=== PATIENT | male | born 1950 | race Caucasian/White ===

== ENCOUNTER 2018-05-22 20:45 | Inpatient (IN) ==
[2018-05-22] MEDS ORDERED: SODIUM CHLORIDE 0.9% 1,000 ML IV STA (21:33)
[2018-05-22] MEDS ORDERED: VANCOMYCIN INJ 1,000 MG in SODIUM CHLORIDE 0.9% 250 ML IV STA ×2 (21:33→22:28)
[2018-05-22] MEDS ORDERED: CEFEPIME 2,000 MG in SODIUM CHLORIDE 0.9% 100 ML IV STA (21:33)
[2018-05-22 21:49] LABS: Basophils % 0.4 % (0.0-0.8); Eosinophils # 0.2 10*3/uL (0.0-0.87); Eosinophils % 3.2 % (0.00-10.9); Hematocrit 39.4 VOL% (42.0-52.0); Immature Granulocytes % 0.9 %; Immature Granulocytes Absolute 0.05 #; Lymphocytes # 1.3 10*3/uL (1.4-4.0); Lymphocytes % 24.1 % (21.2-54.2); Mean Corpuscular Hemoglobin 29 PG (27-34); Mean Corpuscular Volume 87.4 FL (87-102); Mean Platelet Volume 8.9 FL (9.6-12.0); Monocytes # 0.7 10*3/uL (0.11-0.8); Monocytes % 12.2 % (1.7-12.7); Neutrophils # 3.1 10*3/uL (1.4-7.4); Neutrophils % 59.2 % (38.7-73.9); Platelet Count 238 T/CUMM (130-400); Red Blood Count 4.51 MC/CUMM (3.8-5.5); Red Cell Distribution Width 13.1 % (9.3-17.3); White Blood Count 5.3 T/CUMM (4-12)
[2018-05-22 22:15] LABS: Bilirubin,Total 0.4 MG/DL (0.2-1.0); Calcium 6.9 MG/DL (8.5-10.1); Lactic Acid 1.3 MMOL/L (0.4-2.0); Osmolality,Calculated 278.5 MOS/KG (273-304); Potassium 3.9 MMOL/L (3.5-5.1); Total Protein 6.8 G/DL (6.4-8.3)
[2018-05-22 22:22] LABS: Eosinophils 2 % (0-10); Lymphocytes 26 % (20-55); Segmented Neutrophils 63 % (50-85); Total Cells Counted 100
[2018-05-22 22:23] LABS: Platelet Estimate Normal; Polychromasia Few
[2018-05-22 23:42] LABS: Apearance,Urine CLEAR (Clear); Bilirubin,Urine Negative (Negative); Blood, Urine Negative (Negative); Glucose,Urine (UA) Negative (Negative); Ketones,Urine Negative (Negative); Nitrite,Urine Negative (Negative); Protein,Urine Negative; RBC,Urine <1 /HPF (0-4); Urine Color Straw (Yellow); Urine Specific Gravity 1.006 (1.001-1.035); Urine Urobilinogen < 2.0 EU/DL (0.2-1.0); WBC,Urine 1 /HPF (0-6)
[2018-05-23] MEDS ORDERED: ONDANSETRON 4 MG/2 ML VIAL IV PRN (00:22)
[2018-05-23] MEDS ORDERED: ACETAMINOPHEN 325 MG TABLET PO PRN (00:22)
[2018-05-23] MEDS: CEFEPIME 1,000 MG in SYRINGE 1 EACH IV SCH ×2 (06:02→15:38)
[2018-05-23 06:54] LABS: Basophils % 0.2 % (0.0-0.8); Eosinophils % 0.4 % (0.00-10.9); Hematocrit 35.8 VOL% (42.0-52.0); Hemoglobin 11.5 GM/DL (14.0-18.0); Immature Granulocytes Absolute 0.05 #; Lymphocytes # 0.6 10*3/uL (1.4-4.0); Lymphocytes % 11.1 % (21.2-54.2); Mean Corpuscular HGB Conc 32.1 GM/DL (32-36); Mean Corpuscular Hemoglobin 28 PG (27-34); Mean Corpuscular Volume 87.5 FL (87-102); Mean Platelet Volume 8.6 FL (9.6-12.0); Monocytes # 0.4 10*3/uL (0.11-0.8); Monocytes % 6.9 % (1.7-12.7); Neutrophils # 4.2 10*3/uL (1.4-7.4); Neutrophils % 80.4 % (38.7-73.9); Platelet Count 220 T/CUMM (130-400); Red Blood Count 4.09 MC/CUMM (3.8-5.5); Red Cell Distribution Width 13.1 % (9.3-17.3); White Blood Count 5.2 T/CUMM (4-12)
[2018-05-23 07:18] LABS: Eosinophils 1 % (0-10); Lymphocytes 12 % (20-55); Platelet Estimate Normal; Segmented Neutrophils 80 % (50-85); Total Cells Counted 100
[2018-05-23 07:21] LABS: Albumin 2.7 G/DL (3.4-5.0); Bilirubin,Total 0.5 MG/DL (0.2-1.0); Calcium 6.7 MG/DL (8.5-10.1); Osmolality,Calculated 277.7 MOS/KG (273-304); Potassium 4.8 MMOL/L (3.5-5.1); Total Protein 6.4 G/DL (6.4-8.3)
[2018-05-23] MEDS ORDERED: traMADol 50 MG TABLET PO PRN (07:54)
[2018-05-23] MEDS ORDERED: PROCHLORPERAZINE 10 MG TABLET PO PRN (07:54)
[2018-05-23] MEDS: DOCUSATE SODIUM 100 MG CAPSULE PO SCH (09:40)
[2018-05-23] MEDS: FAMOTIDINE 20 MG TABLET PO SCH (09:41)
[2018-05-23] MEDS: PANTOPRAZOLE 40 MG TABLET PO SCH (09:41)
[2018-05-23] MEDS: DEXAMETHASONE 4 MG TABLET PO SCH (09:41)
[2018-05-23] MEDS ORDERED: MAGNESIUM SULF RIDER 2 GM in PREMIX 1 EACH IV PRN (13:35)
[2018-05-23] MEDS ORDERED: MAGNESIUM SULF RIDER 4 GM in PREMIX 1 EACH IV PRN (13:35)
[2018-05-23] MEDS: LIDOCAINE 5% PATCH TRANSDERM SCH (15:41)
[2018-05-23] MEDS ORDERED: GABAPENTIN 300 MG CAPSULE PO SCH (21:00)
[2018-05-23] MEDS ORDERED: MIRTAZAPINE 15 MG TABLET PO SCH (21:00)
[2018-05-24] MEDS: CEFEPIME 1,000 MG in SYRINGE 1 EACH IV SCH ×2 (00:38→06:42)
[2018-05-24 05:52] LABS: Basophils % 0.1 % (0.0-0.8); Eosinophils # 0.1 10*3/uL (0.0-0.87); Eosinophils % 0.8 % (0.00-10.9); Hematocrit 33.1 VOL% (42.0-52.0); Hemoglobin 10.8 GM/DL (14.0-18.0); Immature Granulocytes % 0.6 %; Immature Granulocytes Absolute 0.04 #; Lymphocytes % 13.5 % (21.2-54.2); Mean Corpuscular HGB Conc 32.6 GM/DL (32-36); Mean Corpuscular Hemoglobin 28 PG (27-34); Mean Corpuscular Volume 86.6 FL (87-102); Mean Platelet Volume 8.9 FL (9.6-12.0); Monocytes # 0.8 10*3/uL (0.11-0.8); Monocytes % 10.5 % (1.7-12.7); Neutrophils # 5.3 10*3/uL (1.4-7.4); Neutrophils % 74.5 % (38.7-73.9); Platelet Count 208 T/CUMM (130-400); Red Blood Count 3.82 MC/CUMM (3.8-5.5); Red Cell Distribution Width 13.2 % (9.3-17.3); White Blood Count 7.1 T/CUMM (4-12)
[2018-05-24 06:08] LABS: Calcium 7.2 MG/DL (8.5-10.1); Potassium 4.3 MMOL/L (3.5-5.1)
[2018-05-24 06:22] LABS: Lymphocytes 16 % (20-55); Platelet Estimate Normal; Polychromasia Few; Segmented Neutrophils 74 % (50-85); Total Cells Counted 100
[2018-05-24 07:46] VITALS: BP 157/78
[2018-05-24] MEDS: DEXAMETHASONE 4 MG TABLET PO SCH (10:10)
[2018-05-24] MEDS: DOCUSATE SODIUM 100 MG CAPSULE PO SCH (10:10)
[2018-05-24] MEDS: FAMOTIDINE 20 MG TABLET PO SCH (10:10)
[2018-05-24] MEDS: LIDOCAINE 5% PATCH TRANSDERM SCH (10:11)
[2018-05-24] MEDS: PANTOPRAZOLE 40 MG TABLET PO SCH (10:12)
== END 2018-05-24 10:27 | disposition home or self-care (01) | DRG 864 ==
LOC: N.ED 20:45 → N.EDINP 05-23 00:22 → N.4E 05-23 00:45
PROVIDERS: ADMIT Internal Medicine; ATTEND Internal Medicine

== ENCOUNTER 2019-01-11 22:24 | Inpatient (IN) ==
[2019-01-12 04:05] LABS: Basophils % 0.5 % (0.0-0.8); Eosinophils % 0.4 % (0.00-10.9); Hematocrit 37.7 VOL% (42.0-52.0); Hemoglobin 12.2 GM/DL (14.0-18.0); Immature Granulocytes % 1.4 %; Immature Granulocytes Absolute 0.11 #; Lymphocytes # 0.4 10*3/uL (1.4-4.0); Lymphocytes % 4.7 % (21.2-54.2); Mean Corpuscular HGB Conc 32.4 GM/DL (32-36); Mean Corpuscular Volume 97.7 FL (87-102); Monocytes % 16.3 % (1.7-12.7); NRBC # 0.02 10*3/uL; Neutrophils % 76.7 % (38.7-73.9); Platelet Count 155 T/CUMM (130-400); Red Blood Count 3.86 MC/CUMM (3.8-5.5); Red Cell Distribution Width 14.6 % (9.3-17.3); White Blood Count 7.6 T/CUMM (4-12)
[2019-01-12 04:30] LABS: Band Neutrophils 1 % (0-10); Lymphocytes 6 % (20-55); Platelet Estimate Adequate; Polychromasia Few; Segmented Neutrophils 77 % (50-85); Total Cells Counted 100
[2019-01-12 04:43] LABS: Albumin 3.4 G/DL (3.4-5.0); Bilirubin,Total 1.4 MG/DL (0.2-1.0); Calcium 8.4 MG/DL (8.5-10.1); Osmolality,Calculated 282.4 MOS/KG (273-304); Total Protein 8.3 G/DL (6.4-8.3)
[2019-01-12] MEDS ORDERED: VANCOMYCIN INJ 1,000 MG in SODIUM CHLORIDE 0.9% 250 ML IV STA (05:00)
[2019-01-12] MEDS ORDERED: NICOTINE 21 MG/24 HR PATCH TRANSDERM PRN (05:37)
[2019-01-12] MEDS ORDERED: traZODone 50 MG TABLET PO PRN (05:37)
[2019-01-12] MEDS ORDERED: ACETAMINOPHEN 325 MG TABLET PO PRN (05:37)
[2019-01-12] MEDS ORDERED: ONDANSETRON 4 MG/2 ML VIAL IV PRN (05:37)
[2019-01-12] MEDS ORDERED: DOCUSATE SODIUM 100 MG CAPSULE PO PRN (05:37)
[2019-01-12] MEDS ORDERED: ALBUTEROL 2.5 MG/3 ML NEB RESP TX PRN (05:44)
[2019-01-12] MEDS: ENOXAPARIN 40 MG/0.4 ML SYRINGE SUBCUT SCH (10:36)
[2019-01-12] MEDS: PANTOPRAZOLE 40 MG TABLET PO SCH (10:36)
[2019-01-12] MEDS: SODIUM CHLORIDE 0.9% 1,000 ML IV SCH ×2 (10:39→22:39)
[2019-01-12] MEDS: VANCOMYCIN INJ 1,000 MG in SODIUM CHLORIDE 0.9% 250 ML IV SCH (23:33)
[2019-01-13 05:08] LABS: Basophils % 0.3 % (0.0-0.8); Eosinophils % 0.3 % (0.00-10.9); Hematocrit 29.1 VOL% (42.0-52.0); Hemoglobin 9.1 GM/DL (14.0-18.0); Immature Granulocytes % 1.8 %; Immature Granulocytes Absolute 0.21 #; Lymphocytes # 0.4 10*3/uL (1.4-4.0); Lymphocytes % 3.5 % (21.2-54.2); Mean Corpuscular HGB Conc 31.3 GM/DL (32-36); Mean Corpuscular Volume 99.3 FL (87-102); Mean Platelet Volume 9.7 FL (9.6-12.0); Monocytes % 10.3 % (1.7-12.7); Neutrophils % 83.8 % (38.7-73.9); Platelet Count 139 T/CUMM (130-400); Red Blood Count 2.93 MC/CUMM (3.8-5.5); Red Cell Distribution Width 14.7 % (9.3-17.3); White Blood Count 11.9 T/CUMM (4-12)
[2019-01-13 05:20] LABS: Calcium 7.4 MG/DL (8.5-10.1); Osmolality,Calculated 281.3 MOS/KG (273-304)
[2019-01-13 06:06] LABS: Band Neutrophils 3 % (0-10); Lymphocytes 9 % (20-55); Segmented Neutrophils 81 % (50-85); Total Cells Counted 100
[2019-01-13 06:07] LABS: Atypical Lymphocytes Few; Hypersegmented Neutrophil SLIGHT
[2019-01-13 06:08] LABS: Microcytosis 1+; Platelet Estimate Adequate
[2019-01-13] MEDS ORDERED: ALBUTEROL SULFATE BOTH NARES PRN (09:14)
[2019-01-13] MEDS ORDERED: NAPROXEN 250 MG TABLET PO PRN (09:27)
[2019-01-13] MEDS ORDERED: CALCIUM CARBONATE CHEW 500 MG TABLET PO PRN (09:27)
[2019-01-13] MEDS: ENOXAPARIN 40 MG/0.4 ML SYRINGE SUBCUT SCH (09:39)
[2019-01-13] MEDS: PANTOPRAZOLE 40 MG TABLET PO SCH (09:39)
[2019-01-13] MEDS: FOLIC ACID 0.4 MG TABLET PO SCH (09:39)
[2019-01-13] MEDS: SODIUM CHLORIDE 0.9% 1,000 ML IV SCH ×2 (09:44→15:55)
[2019-01-13] MEDS ORDERED: ALBUTEROL SULFATE PO PRN (09:55)
[2019-01-13] MEDS: VANCOMYCIN INJ 1,000 MG in SODIUM CHLORIDE 0.9% 250 ML IV SCH (17:06)
[2019-01-13] MEDS: MIRTAZAPINE 30 MG TABLET PO SCH (20:31)
[2019-01-13] MEDS: GABAPENTIN 300 MG CAPSULE PO SCH (20:31)
[2019-01-14] MEDS: SODIUM CHLORIDE 0.9% 1,000 ML IV SCH ×3 (04:54→22:50)
[2019-01-14] MEDS: VANCOMYCIN INJ 1,000 MG in SODIUM CHLORIDE 0.9% 250 ML IV SCH (10:29)
[2019-01-14] MEDS: ENOXAPARIN 40 MG/0.4 ML SYRINGE SUBCUT SCH (10:30)
[2019-01-14] MEDS: PANTOPRAZOLE 40 MG TABLET PO SCH (10:30)
[2019-01-14] MEDS: FOLIC ACID 0.4 MG TABLET PO SCH (10:30)
[2019-01-14] MEDS: MIRTAZAPINE 30 MG TABLET PO SCH (20:28)
[2019-01-14] MEDS: GABAPENTIN 300 MG CAPSULE PO SCH (20:28)
[2019-01-14] MEDS: DEXAMETHASONE 0.5 MG TABLET PO SCH (20:29)
[2019-01-15 04:47] LABS: Basophils % 0.4 % (0.0-0.8); Hematocrit 35.3 VOL% (42.0-52.0); Hemoglobin 10.9 GM/DL (14.0-18.0); Immature Granulocytes % 1.7 %; Immature Granulocytes Absolute 0.18 #; Lymphocytes # 0.5 10*3/uL (1.4-4.0); Lymphocytes % 4.4 % (21.2-54.2); Mean Corpuscular HGB Conc 30.9 GM/DL (32-36); Mean Corpuscular Volume 100.9 FL (87-102); Mean Platelet Volume 9.5 FL (9.6-12.0); Monocytes % 5.9 % (1.7-12.7); Neutrophils % 87.6 % (38.7-73.9); Platelet Count 157 T/CUMM (130-400); Red Cell Distribution Width 14.7 % (9.3-17.3); White Blood Count 10.8 T/CUMM (4-12)
[2019-01-15 05:00] LABS: Calcium 8.1 MG/DL (8.5-10.1); Osmolality,Calculated 285.1 MOS/KG (273-304)
[2019-01-15] MEDS: VANCOMYCIN INJ 1,000 MG in SODIUM CHLORIDE 0.9% 250 ML IV SCH (05:04)
[2019-01-15 05:23] LABS: Band Neutrophils 1 % (0-10); Eosinophils 1 % (0-10); Lymphocytes 2 % (20-55); Platelet Estimate Normal; Segmented Neutrophils 92 % (50-85); Total Cells Counted 100
[2019-01-15] MEDS: PANTOPRAZOLE 40 MG TABLET PO SCH (08:29)
[2019-01-15] MEDS: FOLIC ACID 0.4 MG TABLET PO SCH (08:30)
[2019-01-15] MEDS: DEXAMETHASONE 0.5 MG TABLET PO SCH (08:30)
[2019-01-15] MEDS: ENOXAPARIN 40 MG/0.4 ML SYRINGE SUBCUT SCH (08:30)
[2019-01-15] MEDS ORDERED: CEFDINIR 300 MG CAPSULE PO SCH (11:30)
[2019-01-15 15:59] VITALS: BP 134/81
== END 2019-01-15 16:11 | disposition home or self-care (01) | DRG 872 ==
LOC: N.ED 22:24 → SUATTDRO 01-12 05:38 → N.EDINP 01-12 05:38 → N.3E 01-12 06:52 → N.4E 01-14 15:33
PROVIDERS: ADMIT Internal Medicine; ATTEND Internal Medicine

== ENCOUNTER 2020-05-26 22:45 | Inpatient (IN) ==
[2020-05-27] MEDS ORDERED: LABETALOL 20 MG/4 ML SYRINGE IV ONE (01:51)
[2020-05-27] MEDS ORDERED: hydrALAZINE 20 MG/1 ML VIAL IV PRN (02:42)
[2020-05-27] MEDS ORDERED: DEXTROSE 50% 25 GM/50 ML VIAL IV PRN (02:42)
[2020-05-27] MEDS ORDERED: MORPHINE 4 MG/1 ML VIAL IV PRN (02:42)
[2020-05-27] MEDS ORDERED: diphenhydrAMINE CAP 25 MG CAPSULE PO PRN ×2 (02:42→14:55)
[2020-05-27] MEDS ORDERED: NICOTINE 21 MG/24 HR PATCH TRANSDERM PRN (02:42)
[2020-05-27] MEDS ORDERED: ACETAMINOPHEN 325 MG TABLET PO PRN ×2 (02:42→14:55)
[2020-05-27] MEDS ORDERED: GLUCAGON 1 MG VIAL IM PRN (02:42)
[2020-05-27] MEDS ORDERED: ONDANSETRON 4 MG/2 ML VIAL IV PRN ×2 (02:42→14:55)
[2020-05-27] MEDS ORDERED: metroNIDAZOLE INJ 500 MG in PREMIX 1 EACH IV SCH (03:00)
[2020-05-27] MEDS ORDERED: VANCOMYCIN INJ 1,000 MG in SODIUM CHLORIDE 0.9% 250 ML IV SCH (03:00)
[2020-05-27] MEDS: SODIUM CHLORIDE 0.9% 1,000 ML IV SCH ×2 (03:30→16:02)
[2020-05-27] MEDS: cefTRIAXone 1,000 MG in SYRINGE 1 EACH IV SCH (03:31)
[2020-05-27] MEDS: CLINDAMYCIN INJ 600 MG in PREMIX 1 EACH IV SCH ×3 (03:36→18:32)
[2020-05-27 03:54] LABS: Basophils % 0.1 % (0.0-0.8); Eosinophils # 0.1 10*3/uL (0.0-0.87); Eosinophils % 0.4 % (0.00-10.9); Hematocrit 33.1 VOL% (42.0-52.0); Hemoglobin 10.5 GM/DL (14.0-18.0); Lymphocytes # 0.9 10*3/uL (1.4-4.0); Lymphocytes % 5.5 % (21.2-54.2); Mean Corpuscular HGB Conc 31.7 GM/DL (32-36); Mean Corpuscular Volume 101.2 FL (87-102); Mean Platelet Volume 9.2 FL (9.6-12.0); Monocytes % 11.5 % (1.7-12.7); NRBC # 0.18 10*3/uL; Neutrophils % 68.5 % (38.7-73.9); Platelet Count 234 T/CUMM (130-400); Red Blood Count 3.27 MC/CUMM (3.8-5.5); Red Cell Distribution Width 15.4 % (9.3-17.3); White Blood Count 16.5 T/CUMM (4-12)
[2020-05-27 04:23] LABS: Albumin 2.2 G/DL (3.4-5.0); Bilirubin,Total 0.4 MG/DL (0.2-1.0); Osmolality,Calculated 282.1 MOS/KG (273-304); Total Protein 5.9 G/DL (6.4-8.3)
[2020-05-27 04:34] LABS: Band Neutrophils 1 % (0-10); Lymphocytes 8 % (20-55); Metamyelocytes 1 %; Myelocytes 2 %; Nucleated Red Blood Cells 3 (0-5); Segmented Neutrophils 74 % (50-85); Total Cells Counted 100
[2020-05-27 04:35] LABS: Hypochromasia Slight; Microcytosis 1+; Platelet Estimate Normal
[2020-05-27] MEDS ORDERED: LIDOCAINE 2%/EPI 20 ML VIAL MISC INJ ONE (10:50)
[2020-05-27] MEDS ORDERED: LACTULOSE 20 GM/30 ML UDCUP PO PRN (14:55)
[2020-05-27] MEDS ORDERED: MYLANTA/LIDO VISC 2:1 300 ML BOTTLE SWISH/SWAL PRN (14:55)
[2020-05-27] MEDS ORDERED: MAGNESIUM HYDROXIDE SUSP 30 ML UDCUP PO PRN (14:55)
[2020-05-27] MEDS ORDERED: guaiFENesin 200 MG/10 ML UDCUP PO PRN (14:55)
[2020-05-27] MEDS ORDERED: LOPERAMIDE 2 MG CAPSULE PO PRN ×2 (14:55)
[2020-05-27] MEDS ORDERED: MYLANTA/LIDO VISC 2:1 300 ML BOTTLE SWISH/SPIT PRN (14:55)
[2020-05-27] MEDS ORDERED: ALPRAZolam 0.25 MG TABLET PO PRN (14:55)
[2020-05-27] MEDS ORDERED: chlorproMAZINE INJ 25 MG in SODIUM CHLORIDE 0.9% 100 ML IV PRN (14:55)
[2020-05-27] MEDS ORDERED: TEMAZEPAM 7.5 MG CAPSULE PO PRN (14:55)
[2020-05-27] MEDS ORDERED: traMADol 50 MG TABLET PO PRN (14:55)
[2020-05-27] MEDS ORDERED: ALUMINUM/MAGNES/SIMETH MAX STR 30 ML UDCUP PO PRN (14:55)
[2020-05-27] MEDS ORDERED: chlorproMAZINE INJ 50 MG in SODIUM CHLORIDE 0.9% 100 ML IV PRN (14:55)
[2020-05-27] MEDS ORDERED: PROMETHAZINE INJ 25 MG in SODIUM CHLORIDE 0.9% 50 ML IV PRN (14:55)
[2020-05-27] MEDS: MUPIROCIN 2% OINT 22 GM TUBE TOP SCH ×2 (16:02→21:25)
[2020-05-27] MEDS: MIRTAZAPINE 15 MG TABLET PO SCH (21:25)
[2020-05-28] MEDS: cefTRIAXone 1,000 MG in SYRINGE 1 EACH IV SCH (03:35)
[2020-05-28] MEDS: CLINDAMYCIN INJ 600 MG in PREMIX 1 EACH IV SCH ×4 (03:40→18:35)
[2020-05-28 03:51] LABS: Basophils % 0.2 % (0.0-0.8); Eosinophils # 0.1 10*3/uL (0.0-0.87); Eosinophils % 0.9 % (0.00-10.9); Hematocrit 32.5 VOL% (42.0-52.0); Hemoglobin 9.7 GM/DL (14.0-18.0); Immature Granulocytes % 15.4 %; Immature Granulocytes Absolute 1.93 #; Lymphocytes # 0.7 10*3/uL (1.4-4.0); Lymphocytes % 5.6 % (21.2-54.2); Mean Corpuscular HGB Conc 29.8 GM/DL (32-36); Mean Corpuscular Volume 105.5 FL (87-102); Mean Platelet Volume 9.2 FL (9.6-12.0); Monocytes % 13.2 % (1.7-12.7); NRBC # 0.08 10*3/uL; Neutrophils % 64.7 % (38.7-73.9); Platelet Count 212 T/CUMM (130-400); Red Blood Count 3.08 MC/CUMM (3.8-5.5); Red Cell Distribution Width 15.9 % (9.3-17.3); White Blood Count 12.5 T/CUMM (4-12)
[2020-05-28 04:25] LABS: Albumin 2.1 G/DL (3.4-5.0); Bilirubin,Total 0.5 MG/DL (0.2-1.0); Calcium 7.9 MG/DL (8.5-10.1); Osmolality,Calculated 285.8 MOS/KG (273-304); Total Protein 6.2 G/DL (6.4-8.3); Uric Acid 5.7 MG/DL (3.5-7.2)
[2020-05-28 04:52] LABS: Band Neutrophils 3 % (0-10); Hypochromasia 1+; Lymphocytes 11 % (20-55); Microcytosis 1+; Nucleated Red Blood Cells 1 (0-5); Ovalocytes Slight; Platelet Estimate Adequate; Segmented Neutrophils 70 % (50-85); Total Cells Counted 100
[2020-05-28] MEDS: SODIUM CHLORIDE 0.9% 1,000 ML IV SCH ×3 (06:24→18:35)
[2020-05-28] MEDS: MUPIROCIN 2% OINT 22 GM TUBE TOP SCH ×3 (09:13→20:50)
[2020-05-28] MEDS: CLOTRIMAZOLE 1% CREAM 15 GM TUBE TOP SCH ×2 (10:46→20:50)
[2020-05-28] MEDS: MIRTAZAPINE 15 MG TABLET PO SCH (20:48)
[2020-05-29] MEDS: cefTRIAXone 1,000 MG in SYRINGE 1 EACH IV SCH (03:22)
[2020-05-29] MEDS: CLINDAMYCIN INJ 600 MG in PREMIX 1 EACH IV SCH ×2 (03:26→12:05)
[2020-05-29] MEDS: CLOTRIMAZOLE 1% CREAM 15 GM TUBE TOP SCH (08:21)
[2020-05-29] MEDS: MUPIROCIN 2% OINT 22 GM TUBE TOP SCH (08:21)
[2020-05-29 11:37] VITALS: BP 120/78
[2020-05-29 13:17] LABS: Bilirubin,Urine Negative (Negative); Blood, Urine Negative (Negative); Glucose,Urine (UA) Negative (Negative); Hyaline Casts,Urine 5 /LPF (0-3); Ketones,Urine 20 mg/dL (Negative); Mucus,Urine Occasional /LPF (Occasional); Nitrite,Urine Negative (Negative); Protein,Urine Negative; RBC,Urine 3 /HPF (0-4); Urine Appearance CLEAR (Clear); Urine Color Yellow (Yellow); Urine Specific Gravity 1.016 (1.001-1.035); Urine Urobilinogen < 2.0 EU/DL (0.2-1.0); WBC,Urine 1 /HPF (0-6)
== END 2020-05-29 16:07 | disposition home or self-care (01) | DRG 264 ==
LOC: SUATTDRO 05-27 01:28 → N.4E 05-27 01:28
PROVIDERS: ADMIT Internal Medicine; ATTEND Internal Medicine Geriatric Medicine